=== PATIENT | female | born 1995 | race African-American/Black ===

== ENCOUNTER 2016-11-12 21:12 | Emergency (ER) | payer OTHER ==
[~2016-11-12] VITALS: Ht 160 cm; Wt 68.2 kg
[~2016-11-12 21:12] MED LIST: DOCUSATE SODIU100 MG PO; HEMOCYTE324 MG PO; IBUPROFEN800 MG PO; MICONAZOLE 7100 MG VG
[2016-11-12 21:19] VITALS: BP 118/84
== END 2016-11-12 23:36 | disposition left against medical advice (07) ==
LOC: EME 21:12
DX: R30.0 Dysuria (principal); N89.8 Other specified noninflammatory disorders of vagina; Z53.21 Procedure and treatment not carried out due to patient leaving prior to being seen by health care provider
CPT/HCPCS: 81003